=== PATIENT | female | born 1985 | race Caucasian/White ===

== ENCOUNTER 2023-04-15 14:09 | Emergency (ER) | payer OTHER ==
[2023-04-15 14:24] VITALS: O2SAT 100
--- NOTE | 2023-04-15 15:10 | ED Physician Documentation ---
PD HPI LOWER EXT INJURY - Stated complaint Stated Complaint: RT FT INJ - Chief complaint Chief Complaint: Trauma Ext - History obtained from History obtained from: Patient - Additional information Additional information: She ran over her right foot with a cart full of wood at [employer] just prior to arrival. Painful with movement or walking, but not painful at rest. No possibility of . PD PAST MEDICAL HISTORY - Past Medical History Past Medical History: No Cardiovascular: None Respiratory: None Neuro: None Endocrine/Autoimmune: None GI: None [employer]: None : None HEENT: None Psych: None Musculoskeletal: None Derm: None - Past Surgical History Past Surgical History: No - Allergies Allergies/Adverse Reactions: Allergies Allergy/AdvReac Type Severity Reaction Status Date / Time No Known Drug Allergies Allergy Verified 04/15/23 14:13 - Social History Does the pt smoke?: No Smoking Status: Never smoker Does the pt drink ETOH?: No Does the pt have substance abuse?: No - Immunizations Immunizations are current?: Yes PD ED PE NORMAL - Vitals Vital signs reviewed: Yes - General General: Alert and oriented X 3, No acute distress - Derm Derm: Normal color, Warm and dry - Extremities Extremities: Other (Right foot pinky toe is quite tender and a lot of pain with range of motion.) - Neuro Neuro: Alert and oriented X 3, Normal speech Results - Vitals Vitals: Vital Signs - 24 hr 04/15/23 04/15/23 14:13 15:58 Temperature 36.8 C Heart Rate 80 74 Respiratory 16 16 Rate Blood Pressure 110/60 125/71 O2 Saturation 100 100 Oxygen O2 Source Room air - Rads (name of study) 3v xr r foot Relevant Findings:: Final report received, EMP independent interpretation of test PD Medical Decision Making - ED course ED course: Crush injury of the foot with negative imaging. Placed in a fracture shoe. Declined further needs. Departure - Departure Disposition: 01 Home, Self Care Clinical Impression: Crush injury of right foot Qualifiers: Encounter type: initial encounter Qualified Code(s): S97.81XA - Crushing injury of right foot, initial encounter Condition: Good Record reviewed to determine appropriate education?: Yes Instructions: ED Crush Injury Toe No Fx Comments: As discussed, I am sending fractures on the x-ray. On the off chance the radiologist sees something I do not, I will call you later in the day. Tylenol and/or ibuprofen as needed for pain. Ice and elevate. Wear the fracture shoe as needed until it is feeling better. Return for new or worsening symptoms. Follow-up your doctor in a week or 2 if not improved. Forms: PCP List Discharge Date/Time: 04/15/23 15:59
[2023-04-15 16:05] VITALS: BP 125/71
--- NOTE | 2023-04-15 18:50 | XRAY Report ---
PROCEDURE: Foot 3+V RT INDICATIONS: Trauma TECHNIQUE: 3 views of the foot were acquired. COMPARISON: None. FINDINGS: Bones: No displaced fracture or dislocation identified. Soft tissues: No suspicious calcifications. A calcification adjacent to the cuboid, probably a conge nital/chronic ossicle. IMPRESSION: No acute radiographic abnormality. If there is high concern for occult injury, consider repeat radiog shaun or cross-sectional imaging. Reviewed by: Chito Shaffer MD on 04/15/2023 4:11 PM [facility] Approved by: Chito Shaffer MD on 04/15/2023 4:11 PM [facility] Station ID: [id number]
== END 2023-04-15 15:59 | disposition home or self-care (01) ==
LOC: ED 14:09
DX: S97.81XA Crushing injury of right foot, initial encounter (principal); X58.XXXA Exposure to other specified factors, initial encounter; Y93.9 Activity, unspecified; Y92.512 Supermarket, store or market as the place of occurrence of the external cause
CPT/HCPCS: 99283